=== PATIENT | female | born 1935 | race Caucasian/White ===

== ENCOUNTER 2017-10-14 21:28 | Emergency (ER) | payer OTHER ==
--- NOTE | 2017-10-14 22:17 | RAD REPORT ---
EXAM DESCRIPTION: CT - CTHCSPWOC - 10/14/2017 10:04 pm CLINICAL HISTORY: Trauma, head and neck injury. PAIN COMPARISON: HEAD BRAIN W O CONTRAST dated 01/21/2014 TECHNIQUE: Axial 5 mm thick images of the head were obtained. Axial 2 mm thick images of the cervical spine were obtained with sagittal and coronal reconstruction images generated and reviewed. All CT scans are performed using dose optimization technique as appropriate and may include automated exposure control or mA/KV adjustment according to patient size. FINDINGS: CT HEAD WITHOUT CONTRAST: Acute left frontal subdural hematoma is present measuring 7 mm in maximum thickness.No hydrocephalus seen. Subtle increased density along the medial anterior left frontal lobe may be secondary to a smal l cortical contusion.Moderate brain atrophy is seen without evidence of midline shift. The paranasal sinuses and mastoids are clear.The calvarium is intact. Right frontal scalp hematoma is seen. CT CERVICAL SPINE WITHOUT CONTRAST: No fracture or subluxation.Mild lower cervical degenerative changes.No prevertebral soft tissues swel ling is identified. IMPRESSION: Acute 7 mm left frontal subdural hematoma.No appreciable midline shift. Findings were discussed with Dr. Peralta in the emergency 10:12 p.m. 10/14/2017 by telephone.
[2017-10-14] MEDS ORDERED: NA CHLORIDE 0.9% 100 ML IV ONE (22:51)
[2017-10-14] MEDS ORDERED: CEFOTAXIME SODIUM 1 GM/VIAL ONE (22:51)
[2017-10-14] MEDS ORDERED: NA CHLORIDE 0.9% 1,000 ML ONE (22:51)
[2017-10-14 23:04] LABS: Absolute Monocytes 0.4 K/uL (0.1-1.3); Absolute Neutrophil 4.6 K/uL (1.8-8.0); Eosinophils % 1.1 % (0-4.4); Hematocrit 35.5 % (36.0-45.0); Lymphocytes % 16.4 % (15.3-44.8); MCH 28.2 pg (27.0-35.0); MCV 87.3 fL (80-100); MPV 7.1 fL (7.6-11.3); Monocytes % 6.3 % (3.3-12.3); RBC Red Blood Cell Count 4.07 M/uL (3.86-4.86)
[2017-10-14 23:05] LABS: Protime INR 0.89
--- NOTE | 2017-10-14 23:28 | ER ---
Nurse's Notes [facility] Name: Myra Nicole Age: 81 yrs Sex: Female : 1935 Arrival Date: 10/14/2017 Time: 21:31 Bed 3 Private MD: Diagnosis: Traumatic subdural hemorrhage without loss of consciousness Presentation: 10/14 21:24 Presenting complaint: EMS states: Called to pt's home, reported she had got up to get ea ready for bed and had a fall. EMS reports lac to right side of head and large hematoma to left forearm. Transition of care: patient was not received from another setting of care. Onset of symptoms was October 14, 2017. Risk Assessment: Do you want to hurt yourself or someone else? Patient reports no desire to harm self or others. Initial Sepsis Screen: Does the patient meet any 2 criteria? No. Patient's initial sepsis screen is negative. Does the patient have a suspected source of infection? No. Patient's initial sepsis screen is negative. Care prior to arrival: EMS noted positive orthostatics, reported pt denies LOC, 22G to right forearm. 21:24 Method Of Arrival: EMS: [facility] ea 21:24 Acuity: PAUL 3 ea 21:24 Mechanism of Injury: Fall from standing position. Trauma event details: Injury occurred ea in the [facility], Injury occurred: at home. Injury occurred: October 14, 2017 Injury occurred at: 21:00. Triage Assessment: 21:24 General: Appears in no apparent distress. Behavior is calm, cooperative, appropriate ea for age. General: Pt denies LOC. Reports she was just getting up reaching for the remote when she fell and hit the floor. . Pain: Denies pain. EENT: No signs and/or symptoms were reported regarding the EENT system. Neuro: Level of Consciousness is awake, alert, obeys commands, Oriented to person, place, time, situation, Speech is normal, Facial symmetry appears normal, Pupils are PERRLA, Intact. Cardiovascular: Heart tones S1 S2 present Patient's skin is warm and dry. Respiratory: Airway is patent Respiratory effort is even, unlabored, Respiratory pattern is regular, symmetrical, Breath sounds are clear bilaterally. GI: Abdomen is non-distended, Bowel sounds present X 4 quads. Abd is soft and non tender X 4 quads. : No signs and/or symptoms were reported regarding the genitourinary system. Derm: laceration to right forehead, hematoma noted to left forearm. Musculoskeletal: Circulation, motion, and sensation intact. Trauma Activation: Alert Physician: ED Physician; Name: Peralta; Notified At: 21:23; Arrived At: Physician: General Surgeon; Name: ; Notified At: 21:23; Arrived At: Physician: Radiology; Name: Kelly Griffith; Notified At: 21:23; Arrived At: 21:30 Physician: Respiratory; Name: ; Notified At: 21:; Arrived At: Physician: Lab; Name: ; Notified At: 21:23; Arrived At: Historical: - Allergies: 22:26 BRANDT INHIBITORS; ea 22:26 Beta-Blockers (Beta-Adrenergic Blocking Agts); ea 22:26 Codeine; ea - Home Meds: 22:26 aspirin 81 mg Oral chew 1 tab once daily [Active]; trazodone 50 mg Oral tab 1 tab at ea bedtime [Active]; Nuedexta 20-10 mg Oral cap 1 cap daily [Active]; Plavix 75 mg Oral tab 1 tab once daily [Active]; losartan-hydrochlorothiazide 50-12.5 mg Oral tab 1 tab once daily [Active]; levothyroxine 75 mcg tab 1 tab once daily [Active]; Namenda XR 28 mg Oral CSpX 1 cap once daily [Active]; pantoprazole 40 mg Oral TbEC 1 tab once daily [Active]; tizanidine 2 mg oral cap 1 caps BID [Active]; Movantik 12.5 mg oral tab 1 tab once daily [Active]; pantoprazole 20 mg oral TbEC 2 tabs once daily [Active]; Amitiza 8 mcg oral cap 1 cap 2 times per day [Active]; hydrocodone-acetaminophen 7.5-325 mg Oral tab 1 tab TID [Active]; furosemide 40 mg Oral tab 1 tab once daily [Active]; - PMHx: 22:26 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 - Social history:: Smoking status: Patient/guardian denies using tobacco. - Immunization history: Last tetanus immunization: unknown. - Ebola Screening: : No symptoms or risks identified at this time. Screenin:31 Abuse screen: Denies threats or abuse. Nutritional screening: No deficits noted. ea Tuberculosis screening: No symptoms or risk factors identified. Fall Risk Fall in past 12 months (25 points). Primary Survey: 21:24 A: Airway: patent. Breathing/Chest: Respiratory pattern: regular, Respiratory effort: ea spontaneous, unlabored, Breath sounds: clear, bilaterally. Chest inspection: symmetrical rise and fall of the chest. Circulation: Heart tones present. Skin color: pink, Skin temperature: warm. Disability Alert. 22:30 Reassessment Breathing/Chest Respiratory pattern Regular Respiratory effort Spontaneous ea Unlabored Circulation Color [place] Temperature Warm Disability Alert. Secondary Survey: 21:25 HEENT: Head Other laceration to right side of forhead. Gastrointestinal: Abdomen is ea soft, Bowel sounds present in all quadrants. : No signs and/or symptoms were reported regarding the genitourinary system. Musculoskeletal: No signs and/or symptoms reported regarding the musculoskeletal system. Injury Description: Bruise sustained to dorsal aspect of left forearm and palmar aspect of left forearm Head injury sustained to forehead bleeding, did not have loss of consciousness, Laceration sustained to forehead is clean, 2.6 to 7.5 cm long, was sustained less than 30 minutes ago. Assessment: 21:24 General: Appears in no apparent distress. uncomfortable, Behavior is calm, cooperative, ea appropriate for age. Neuro: Level of Consciousness is awake, alert, obeys commands, Oriented to person, place, time, situation, Speech is normal, Facial symmetry appears normal, Pupils are PERRLA, Intact. 22:35 Reassessment: Patient and/or family updated on plan of care and expected duration. Pain ea level reassessed. Patient is alert, oriented x 3, equal unlabored respirations, skin warm/dry/pink. 23:10 Reassessment: Report called to Mo[facility] at [facility]. Vital Signs: 21:24 BP 100 / 51; Pulse 63; Resp 18; Temp 97.7; Pulse Ox 100% on R/A; Weight 57.61 kg; ea Height 5 ft. 2 in. (157.48 cm); Pain 0/10; 22:30 BP 129 / 68; Pulse 60; Resp 18; Pulse Ox 100% on R/A; ea 23:05 BP 113 / 63; Pulse 60; Resp 16; Pulse Ox 96% on R/A; mt 10/15 00:30 BP 127 / 48; Pulse 67; Resp 18; Temp 97.7(O); Pulse Ox 100% on R/A; Pain 0/10; ea 01:00 BP 124 / 76; Pulse 72; Resp 18; Temp 97.7(O); Pulse Ox 100% on R/A; Pain 0/10; ea 10/14 21:24 Body Mass Index 23.23 (57.61 kg, 157.48 cm) ea Martha Coma Score: 10/14 21:24 Eye Response: spontaneous(4). Verbal Response: oriented(5). Motor Response: obeys ea commands(6). Total: 15. 22:30 Eye Response: spontaneous(4). Verbal Response: oriented(5). Motor Response: obeys ea commands(6). Total: 15. 23:18 Eye Response: spontaneous(4). Verbal Response: oriented(5). Motor Response: obeys gs commands(6). Total: 15. 10/15 00:30 Eye Response: spontaneous(4). Verbal Response: oriented(5). Motor Response: obeys ea commands(6). Total: 15. 01:00 Eye Response: spontaneous(4). Verbal Response: oriented(5). Motor Response: obeys ea commands(6). Total: 15. Trauma Score (Adult): 10/14 21:24 Eye Response: spontaneous(1); Verbal Response: oriented(1); Motor Response: obeys ea commands(2); Systolic BP: > 89 mm Hg(4); Respiratory Rate: 10 to 29 per min(4); Martha Score: 15; Trauma Score: 12 ED Course: 21:24 Arm band placed on right wrist. Patient placed in an exam room, on a stretcher, on ea innovation manager, on pulse oximetry. 21:24 Patient has correct armband on for positive identification. Bed in low position. Call ea light in reach. Side rails up X2. 21:24 Patient maintains SpO2 saturation greater than 95% on room air. ea 21:25 Thermoregulation: warm blanket given to patient. ea 21:31 Patient arrived in ED. rg2 21:34 Donovan Peralta MD is Attending Physician. gs 21:46 Shari Macias RN is Primary Nurse. ea 22:04 CT Head C Spine In Process Unspecified. EDMS 22:04 CT completed. Patient tolerated procedure well. Patient moved to CT via stretcher. Patient moved back from CT. 22:17 Triage completed. ea 22:47 X-ray completed. Portable x-ray completed in exam room. Patient tolerated procedure kc2 well. 22:48 XRAY Chest (1 view) In Process Unspecified. EDMS 22:48 Knee Right 3 View XRAY In Process Unspecified. EDMS 22:48 Forearm Left XRAY In Process Unspecified. EDMS 10/15 01:13 No provider procedures requiring assistance completed. Patient transferred, IV remains ea in place. Administered Medications: Discontinued: cefOTAXime 350 mg IVPB once over 30 mins; (mix in 100 mL NS) 10/14 22:45 Drug: NS 0.9% 1000 ml Route: IV; Rate: 125 ml/hr; Site: right antecubital; ea 10/15 01:20 Follow up: Response: No adverse reaction; IV Status: Completed infusion ea 10/14 22:45 Drug: cefOTAXime 350 mg Route: IVPB; Infused Over: 30 mins; Site: right antecubital; ea 23:12 Follow up: IV Status: Order to discontinue infusion ea Intake: 10/15 01:16 PO: 0ml; IV: 600ml (IV Fluid); Total: 600ml. ea Outcome: 10/14 23:28 ER care complete, transfer ordered by . 10/15 01:13 Transferred by ground EMS to [facility], Transfer form completed. ea Condition: stable Instructed on the need for transfer. 01:17 Patient's length of stay in the Emergency Department was greater than 2 hours. Pt ea transferred to [facility]'s length of stay extended due to 01:20 Patient left the ED. ea Signatures: Dispatcher [employer] EDMS Violette Brigid rg2 Emory Redmond Kelsie kc2 Jenifer Solano ne Shari Macias RN RN ea Starr, Gregory, MD MD
--- NOTE | 2017-10-14 23:28 | EDPHYS ---
Physician Documentation [facility] Name: Myra Nicole Age: 81 yrs Sex: Female : 1935 Arrival Date: 10/14/2017 Time: 21:31 Bed 3 Private MD: ED Physician Donovan Peralta HPI: 10/14 23:18 This 81 yrs old Female presents to ER via EMS with complaints of Fall Injury. gs 23:18 Details of fall: The patient fell from an upright position. Onset: The symptoms/episode gs began/occurred acutely, just prior to arrival. Associated injuries: The patient sustained injury to the head, contusion, hematoma, dorsal aspect of left forearm and palmar aspect of left forearm, ecchymosis, hematoma, right knee, hematoma. Severity of symptoms: At their worst the symptoms were moderate, in the emergency department the symptoms are unchanged. The patient has experienced similar episodes in the past, a few times. The patient has not recently seen a physician. Historical: - Allergies: 22:26 BRANDT INHIBITORS; ea 22:26 Beta-Blockers (Beta-Adrenergic Blocking Agts); ea 22:26 Codeine; ea - Home Meds: 22:26 aspirin 81 mg Oral chew 1 tab once daily [Active]; trazodone 50 mg Oral tab 1 tab at ea bedtime [Active]; Nuedexta 20-10 mg Oral cap 1 cap daily [Active]; Plavix 75 mg Oral tab 1 tab once daily [Active]; losartan-hydrochlorothiazide 50-12.5 mg Oral tab 1 tab once daily [Active]; levothyroxine 75 mcg tab 1 tab once daily [Active]; Namenda XR 28 mg Oral CSpX 1 cap once daily [Active]; pantoprazole 40 mg Oral TbEC 1 tab once daily [Active]; tizanidine 2 mg oral cap 1 caps BID [Active]; Movantik 12.5 mg oral tab 1 tab once daily [Active]; pantoprazole 20 mg oral TbEC 2 tabs once daily [Active]; Amitiza 8 mcg oral cap 1 cap 2 times per day [Active]; hydrocodone-acetaminophen 7.5-325 mg Oral tab 1 tab TID [Active]; furosemide 40 mg Oral tab 1 tab once daily [Active]; - PMHx: 22:26 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 - Social history:: Smoking status: Patient/guardian denies using tobacco. - Immunization history: Last tetanus immunization: unknown. - Ebola Screening: : No symptoms or risks identified at this time. ROS: 23:18 Cardiovascular: Negative for chest pain, palpitations. gs 23:18 Respiratory: Negative for shortness of breath. 23:18 All other systems are negative. Exam: 23:18 ENT: Nares patent. No nasal discharge, no septal abnormalities noted. Tympanic gs membranes are normal and external auditory canals are clear. Oropharynx with no redness, swelling, or masses, exudates, or evidence of obstruction, uvula midline. Mucous membranes moist. Chest/axilla: Normal chest wall appearance and motion. Nontender with no deformity. No lesions are appreciated. Cardiovascular: Regular rate and rhythm with a normal S1 and S2. No gallops, murmurs, or rubs. Normal PMI, no JVD. No pulse deficits. Respiratory: Lungs have equal breath sounds bilaterally, clear to auscultation and percussion. No rales, rhonchi or wheezes noted. No increased work of breathing, no retractions or nasal flaring. Abdomen/GI: Soft, non-tender, with normal bowel sounds. No distension or tympany. No guarding or rebound. No evidence of tenderness throughout. Back: No spinal tenderness. No costovertebral tenderness. Full range of motion. Skin: Warm, dry with normal turgor. Normal color with no rashes, no lesions, and no evidence of cellulitis. Neuro: Awake and alert, GCS 15, oriented to person, place, time, and situation. Cranial nerves II-XII grossly intact. Motor strength 5/5 in all extremities. Sensory grossly intact. Cerebellar exam normal. Normal gait. 23:18 Constitutional: The patient appears alert, awake. 23:18 Head/face: Noted is a laceration(s), that is deep, 5 cm(s), of the forehead. 23:18 Eyes: Periorbital structures: swelling, on the right supraorbital ridge and right lower eyelid, ecchymosis. 23:18 Musculoskeletal/extremity: Extremities: noted in the dorsal aspect of left forearm: pain, tenderness, There is no evidence of deformity, Circulation is intact in all extremities. Sensation intact. Joints: the right knee displays painful range of motion, swelling, tenderness. 23:18 ECG was reviewed by the Attending Physician. Vital Signs: 21:24 BP 100 / 51; Pulse 63; Resp 18; Temp 97.7; Pulse Ox 100% on R/A; Weight 57.61 kg; ea Height 5 ft. 2 in. (157.48 cm); Pain 0/10; 22:30 BP 129 / 68; Pulse 60; Resp 18; Pulse Ox 100% on R/A; ea 23:05 BP 113 / 63; Pulse 60; Resp 16; Pulse Ox 96% on R/A; mt 10/15 00:30 BP 127 / 48; Pulse 67; Resp 18; Temp 97.7(O); Pulse Ox 100% on R/A; Pain 0/10; ea 01:00 BP 124 / 76; Pulse 72; Resp 18; Temp 97.7(O); Pulse Ox 100% on R/A; Pain 0/10; ea 10/14 21:24 Body Mass Index 23.23 (57.61 kg, 157.48 cm) ea Martha Coma Score: 10/14 21:24 Eye Response: spontaneous(4). Verbal Response: oriented(5). Motor Response: obeys ea commands(6). Total: 15. 22:30 Eye Response: spontaneous(4). Verbal Response: oriented(5). Motor Response: obeys ea commands(6). Total: 15. 23:18 Eye Response: spontaneous(4). Verbal Response: oriented(5). Motor Response: obeys gs commands(6). Total: 15. 10/15 00:30 Eye Response: spontaneous(4). Verbal Response: oriented(5). Motor Response: obeys ea commands(6). Total: 15. 01:00 Eye Response: spontaneous(4). Verbal Response: oriented(5). Motor Response: obeys ea commands(6). Total: 15. Trauma Score (Adult): 10/14 21:24 Eye Response: spontaneous(1); Verbal Response: oriented(1); Motor Response: obeys ea commands(2); Systolic BP: > 89 mm Hg(4); Respiratory Rate: 10 to 29 per min(4); Combes Score: 15; Trauma Score: 12 Laceration: 23:18 Wound Repair of 5cm ( 2.0in ) subcutaneous laceration to forehead. Distal gs neuro/vascular/tendon intact. Anesthesia: Local anesthetic administered with 3 mls of 1% lidocaine w/ Epi. Wound prep: Simple cleansing, Wound irrigation. Skin closed with 5 4-0 Prolene using simple sutures and sterile technique. Patient tolerated well. MDM: 21:58 Patient medically screened. 23:18 Differential diagnosis: abrasion, closed head injury, contusion, fracture. Data reviewed: vital signs, nurses notes. Response to treatment: the patient's symptoms have markedly improved after treatment. 10/14 22:19 Order name: CBC with Diff 10/14 22:19 Order name: Basic Metabolic Panel 10/14 22:19 Order name: PT-INR 10/14 22:19 Order name: Type And Screen 10/14 22:26 Order name: Troponin (emerg Dept Use Only) 10/14 23:55 Order name: Platelets, Leukored Pheresis EDCT 10/14 21:52 Order name: CT Head C Spine; Complete Time: 22:30 10/14 22:26 Order name: XRAY Chest (1 view) 10/14 22:26 Order name: EKG; Complete Time: 22:27 10/14 22:26 Order name: Cardiac monitoring; Complete Time: 22:52 10/14 22:26 Order name: Knee Right 3 View XRAY 10/14 22:26 Order name: Forearm Left XRAY 10/14 22:26 Order name: EKG - Nurse/Tech; Complete Time: 22:52 10/14 22:26 Order name: IV Saline Lock; Complete Time: 22:52 10/14 22:26 Order name: Labs collected and sent; Complete Time: 22:52 10/14 22:26 Order name: O2 Per Protocol; Complete Time: 22:52 10/14 22:26 Order name: O2 Sat Monitoring; Complete Time: 22:52 EC:18 Rate is 59 beats/min. Rhythm is regular. OK interval is prolonged. T waves are gs Flattened. Clinical impression: NSR w/ Non-specific ST/T Changes and Abnormal EKG without significant change. Interpreted by me. Administered Medications: Discontinued: cefOTAXime 350 mg IVPB once over 30 mins; (mix in 100 mL NS) 22:45 Drug: NS 0.9% 1000 ml Route: IV; Rate: 125 ml/hr; Site: right antecubital; ea 10/15 01:20 Follow up: Response: No adverse reaction; IV Status: Completed infusion ea 10/14 22:45 Drug: cefOTAXime 350 mg Route: IVPB; Infused Over: 30 mins; Site: right antecubital; ea 23:12 Follow up: IV Status: Order to discontinue infusion ea Disposition: 10/14/17 23:28 Transfer ordered to [facility]. Diagnosis is Traumatic subdural hemorrhage without loss of consciousness. - Reason for transfer: Higher level of care. - Accepting physician is . - Condition is Stable. - Problem is new. - Symptoms have improved. Signatures: Dispatcher [employer] EDShari Cantu RN RN ea Starr, Gregory, MD MD Corrections: (The following items were deleted from the chart) 23:43 23:18 Wound Repair of 5cm ( 2.0in ) subcutaneous laceration to forehead. Distal gs neuro/vascular/tendon intact. Anesthesia: Local anesthetic administered with 3 mls of 1% lidocaine w/ Epi, Local anesthetic administered with 1% lidocaine w/ Epi. Wound prep: Simple cleansing, Wound irrigation. Skin closed with 4 4-0 Prolene using simple sutures and sterile technique. Patient tolerated well. 10/15 01:20 10/14 23:28 10/14/2017 23:28 Transfer ordered to [facility]. ea Diagnosis is Traumatic subdural hemorrhage without loss of consciousness. Reason for transfer: Higher level of care. Accepting physician is . Condition is Stable. Problem is new. Symptoms have improved.
[2017-10-15 06:12] VITALS: TEMP 97.7; O2SAT 100
[2017-10-15 06:14] VITALS: BP 124/76
--- NOTE | 2017-10-15 13:14 | RAD REPORT ---
EXAM DESCRIPTION: RAD - Chest Single View - 10/14/2017 10:52 pm CLINICAL HISTORY: MALAISE Fall, trauma, chest pain COMPARISON: CHEST SINGLE VIEW dated 03/10/2014; CHEST SINGLE VIEW dated 01/21/2014; CHEST SINGLE VIEW dated 08/04/2011; CHEST SINGLE VIEW dated 11/12/2010 FINDINGS: Portable technique limits examination quality. The lungs are grossly clear. Trace pleural fluid seen. The heart is normal in size. No displaced frac tures. IMPRESSION: No acute intrathoracic process suspected.
--- NOTE | 2017-10-15 13:20 | RAD REPORT ---
EXAM DESCRIPTION: RAD - Knee Right 3 View - 10/14/2017 10:52 pm CLINICAL HISTORY: PAIN Trauma, pain. COMPARISON: No comparisons FINDINGS: No acute fracture or dislocation identified. No joint effusion present.
--- NOTE | 2017-10-15 13:24 | RAD REPORT ---
EXAM DESCRIPTION: RAD - Forearm Left - 10/14/2017 10:52 pm CLINICAL HISTORY: PAIN Trauma, fall. COMPARISON: No comparisons FINDINGS: Soft tissue swelling is seen proximal forearm. Acute fracture or dislocation is not identi fied.
--- NOTE | 2017-10-17 07:00 | EKG ---
Test Date: 2017-10-14 Test Time: 22:33:44 Bulldogger: NATALIA MEASUREMENT RESULTS: Intervals: Rate: 59 TN: 216 QRSD: 94 QT: 404 QTc: 399 [place]: P: 78 TN: 216 QRS: -31 T: 48 INTERPRETIVE STATEMENTS: Sinus bradycardia with 1st degree AV block Left axis deviation Inferior infarct, age undetermined Cannot rule out Anterior infarct, age undetermined Abnormal ECG Compared to ECG 09/26/2015 10:24:38 First degree AV block now present Left-axis deviation now present Sinus rhythm no longer present Myocardial infarct finding still present Electronically Signed On 10-17-17 06:59:49 CDT by Jose Luis Sellers
== END 2017-10-15 01:20 | disposition short-term general hospital (02) ==
LOC: ER 21:28
PROC: 0JQ10ZZ Repair Face Subcutaneous Tissue and Fascia, Open Approach (ICD-10-PCS; principal; 2017-10-15)
PROC: 30233R1 Transfusion of Nonautologous Platelets into Peripheral Vein, Percutaneous Approach (ICD-10-PCS; 2017-10-15)
DX: S06.5X0A Traumatic subdural hemorrhage without loss of consciousness, initial encounter (principal); S01.81XA Laceration without foreign body of other part of head, initial encounter; W19.XXXA Unspecified fall, initial encounter; Y93.9 Activity, unspecified; Y92.9 Unspecified place or not applicable; Z88.5 Allergy status to narcotic agent; Z88.8 Allergy status to other drugs, medicaments and biological substances; Z79.01 Long term (current) use of anticoagulants; Z79.82 Long term (current) use of aspirin; G30.9 Alzheimer's disease, unspecified; F02.80 Dementia in other diseases classified elsewhere, unspecified severity, without behavioral disturbance, psychotic disturbance, mood disturbance, and anxiety; F32.9 Major depressive disorder, single episode, unspecified
CPT/HCPCS: 12013; 36415; 36430; 70450; 71045; 72125; 73090; 73562; 80048; 84484; 85025; 85610; 86850; 86900; 86901; 93005; 96361; 96365; 99285; J7030; P9035